=== PATIENT | female | born 1955 | race Caucasian/White ===

== ENCOUNTER → 2016-07-23 | Outpatient (CLI) | payer OTHER ==
[~2016-07-23] MED LIST: AMITRIPTYLINE PO; ATOR10TA82 PO; CALC-393 PO; CALC625T PO; CETI10TA84 PO; CLB200 PO; COEN100C7 PO; CYAN10004 PO; DIPH25CA5 PO; FISHOIL PO; FLX10 PO; FRN PO; GUAI600T49 PO; HYDR-5688 PO; MULT-188 PO; MULT-610 PO; NEUROCET PO; NUTRTAB40 PO; OXYSR10 PO; PARO1TAB27 PO; POLYSOL4 OP; POTA1TAB94 PO; PRLSR20 PO; PYRI100T4 PO; SIME180C6 PO; TRIA1SPR4 NAE; VALECAP PO; VITA10004 PO; VTMD1000 PO; XRL10 PO; ZNTT/150 PO; [UNRECOGNIZED DRUG - REMARK] PO
--- NOTE | 2016-07-23 12:46 | MAMMOGRAPHY REPORT ---
BILATERAL DIGITAL SCREENING MAMMOGRAM TOMOSYNTHESIS WITH CAD: 07/23/2016 CLINICAL HISTORY: Routine screening. Patient has no complaints. TECHNIQUE: Breast tomosynthesis in addition to standard 2D mammography was performed. Current study was also evaluated with a Computer Aided Detection (CAD) system. COMPARISON: Comparison is made to exams dated: 05/09/2015 mammogram, 04/27/2013 mammogram, 04/21/2011 m ammogram, 04/15/2010 mammogram, 04/09/2009 mammogram, and 05/03/2014 mammogram - [facility]. BREAST COMPOSITION: There are scattered areas of fibroglandular density in both breasts. FINDINGS: There are benign rim calcifications and round microcalcifications scattered throughout the breasts. No suspicious mass, architectural distortion or cluster of microcalcifications is seen. IMPRESSION: ACR BI-RADS CATEGORY 1: NEGATIVE There is no mammographic evidence of malignancy. A 1 year screening mammogram is recommended. The p atient will receive written notification of the results. Approximately 10% of breast cancers are not detected with mammography. A negative mammographic repor t should not delay biopsy if a clinically suggestive mass is present. Chiqui Emmanuel M.D. ay/:07/23/2016 09:12:28 Features Editor: Nati ARRIOLA(R)(M), [facility] letter sent: Normal 1/2 BI-RADS Code: ACR BI-RADS Category 1: Negative
== END | disposition home or self-care (01) ==
LOC: C.MAMM 07:50
PROVIDERS: ATTEND Family Medicine
DX: Z12.31 Encounter for screening mammogram for malignant neoplasm of breast (principal)

== ENCOUNTER → 2017-07-27 | Outpatient (CLI) | payer OTHER ==
[~2017-07-27] MED LIST changes: +RANI150T85 PO; -ZNTT/150 PO
--- NOTE | 2017-07-28 07:46 | MAMMOGRAPHY REPORT ---
BILATERAL DIGITAL SCREENING MAMMOGRAM TOMOSYNTHESIS WITH CAD: 07/27/2017 CLINICAL HISTORY: Routine screening. Patient has no complaints. TECHNIQUE: Breast tomosynthesis in addition to standard 2D mammography was performed. Current study was also evaluated with a Computer Aided Detection (CAD) system. COMPARISON: Comparison is made to exams dated: 07/23/2016 mammogram, 05/09/2015 mammogram, 05/03/2014 m ammogram, 04/27/2013 mammogram, 04/21/2012 mammogram, and 04/15/2010 mammogram - [facility]. BREAST COMPOSITION: There are scattered areas of fibroglandular density in both breasts. FINDINGS: There are scattered stable benign-appearing calcifications bilaterally. No suspicious mass , architectural distortion or cluster of microcalcifications is seen. IMPRESSION: ACR BI-RADS CATEGORY 1: NEGATIVE There is no mammographic evidence of malignancy. A 1 year screening mammogram is recommended. The pa tient will receive written notification of the results. Approximately 10% of breast cancers are not detected with mammography. A negative mammographic report should not delay biopsy if a clinically suggestive mass is present. Chiqui Emmanuel M.D. ay/:07/27/2017 10:48:46 Equity Holder: Sharlene ARRIOLA([employer])(Zac), [facility] letter sent: Normal 1/2 BI-RADS Code: ACR BI-RADS Category 1: Negative
== END | disposition home or self-care (01) ==
LOC: C.MAMM 08:43
PROVIDERS: ATTEND Family Medicine
DX: Z12.31 Encounter for screening mammogram for malignant neoplasm of breast (principal)

== ENCOUNTER 2020-02-20 04:55 | Observation (INO) ==
--- NOTE | 2020-01-20 14:54 | PAT Medication Instructions ---
Medication Instructions Date of Service January 20, 2020 Home Medications Igor Mag Zinc Plus D3 1 cap PO QAM Thera Tear 1 drp OPB DAILY PRN aloe vera 1 cap PO QAM amitriptyline 10 mg PO HS aspirin 81 mg PO HS azelastine 1 spray INTRANASAL BID butalbital-acetaminophen 1 cap PO QAM PRN calcium polycarbophil [FiberCon] 1,250 mg PO QAM cholecalciferol (vitamin D3) [Vitamin D3] 25 mcg PO QAM cranberry 400 mg PO BID cyanocobalamin (vitamin B-12) [Vitamin B-12] 1,000 mcg PO QAM cyclobenzaprine 10 mg PO TID PRN dimenhydrinate [Dramamine] 50 mg PO DAILY PRN doxycycline monohydrate 50 mg PO QAM etodolac 500 mg PO BID lorazepam 0.5 mg PO DAILY PRN metronidazole 1 applic TOPICAL DAILY PRN multivitamin 1 cap PO QAM omega-3 fatty acids [Fish Oil] 1,000 mg PO QAM omeprazole 20 mg PO BID potassium gluconate 595 mg PO QAM ropinirole 0.25 mg PO HS rosuvastatin 10 mg PO HS vitamin E 1,000 unit PO QAM ASK your surgeon for instructions etodolac 500 mg PO BID butalbital-acetaminophen 1 cap PO QAM PRN STOP taking 2 weeks before surgery (or as soon as possible if surgery is within 2 weeks) Thera Tear 1 drp OPB DAILY PRN aloe vera 1 cap PO QAM omega-3 fatty acids [Fish Oil] 1,000 mg PO QAM vitamin E 1,000 unit PO QAM cranberry 400 mg PO BID STOP taking 24 hours before surgery ropinirole 0.25 mg PO HS metronidazole 1 applic TOPICAL DAILY PRN DO NOT take the morning of surgery calcium polycarbophil [FiberCon] 1,250 mg PO QAM cholecalciferol (vitamin D3) [Vitamin D3] 25 mcg PO QAM cyanocobalamin (vitamin B-12) [Vitamin B-12] 1,000 mcg PO QAM cyclobenzaprine 10 mg PO TID PRN dimenhydrinate [Dramamine] 50 mg PO DAILY PRN multivitamin 1 cap PO QAM potassium gluconate 595 mg PO QAM Take morning of surgery With a small sip of water, OTHERWISE NOTHING TO EAT OR DRINK AFTER MIDNIGHT: azelastine 1 spray INTRANASAL BID doxycycline monohydrate 50 mg PO QAM lorazepam 0.5 mg PO DAILY PRN (if needed) omeprazole 20 mg PO BID Take evening before surgery amitriptyline 10 mg PO HS aspirin 81 mg PO HS azelastine 1 spray INTRANASAL BID cyclobenzaprine 10 mg PO TID PRN (if needed) dimenhydrinate [Dramamine] 50 mg PO DAILY PRN (if needed) lorazepam 0.5 mg PO DAILY PRN (if needed) omeprazole 20 mg PO BID rosuvastatin 10 mg PO HS Other Notes If you have any questions please call us at [phone] or [phone] or [phone] or [phone]
--- NOTE | 2020-01-25 13:31 | Anesthesiology Consultation ---
Date of Service January 25, 2020 Assessment & Plan (1) Encounter for pre-operative examination: Per assessment on 01/24: Travel screen- Lives in [facility]. Travel to [facility] to visit family. Uses PPE. No known COVID-19 positive contacts or current COVID-19 related symptoms. Surgeon arranging preop COVID testing. Awaiting results. Chart Review Chart Review: Acceptable Risk for Surgery (surgeon-ordered PCP clearance ([facility])) and Patient seen in Pre Admission Testing Teaching & Discussion Pre-Anesthesia Teaching/Discussion Notes: Instructed NPO after midnight before surgery,except medications with 15 cc of water. Medication instructions provided according to the PAT guidelines. History Surgery Operation Date: 02/20/20 07:00 Proposed Procedures p Left Total Knee Arthroplasty - Ramy Lugo DO Height/Weight Height: 5 ft 3 in Weight: 98.2 kg Allergies Allergy/AdvReac Type Severity Reaction Status Date / Time Iodinated Contrast Media Allergy Unknown Hives Verified 01/25/20 13:28 codeine AdvReac Mild Migraine Verified 01/25/20 13:28 Medications Home Medications Medication Instructions Recorded Confirmed Last Taken Igor Mag Zinc Plus D3 1 cap PO QAM 01/16/20 01/16/20 Unknown Thera Tear 1 drp OPB DAILY PRN 01/16/20 Unknown aloe vera 1 cap PO QAM 01/16/20 01/16/20 Unknown amitriptyline 10 mg PO HS 01/16/20 01/16/20 Unknown aspirin 81 mg PO HS 01/16/20 01/16/20 Unknown azelastine 1 spray INTRANASAL BID 01/16/20 01/16/20 Unknown butalbital-acetaminophen 1 cap PO QAM PRN 01/16/20 01/16/20 Unknown calcium polycarbophil [FiberCon] 1,250 mg PO QAM 01/16/20 01/16/20 Unknown cholecalciferol (vitamin D3) 25 mcg PO QAM 01/16/20 01/16/20 Unknown [Vitamin D3] cranberry 400 mg PO BID 01/16/20 01/16/20 Unknown cyanocobalamin (vitamin B-12) 1,000 mcg PO QAM 01/16/20 01/16/20 Unknown [Vitamin B-12] cyclobenzaprine 10 mg PO TID PRN 01/16/20 01/16/20 Unknown dimenhydrinate [Dramamine] 50 mg PO DAILY PRN 01/16/20 01/16/20 Unknown doxycycline monohydrate 50 mg PO QAM 01/16/20 01/16/20 Unknown etodolac 500 mg PO BID 01/16/20 01/16/20 Unknown lorazepam 0.5 mg PO DAILY PRN 01/16/20 01/16/20 Unknown metronidazole 1 applic TOPICAL DAILY PRN 01/16/20 01/16/20 Unknown multivitamin 1 cap PO QAM 01/16/20 01/16/20 Unknown omega-3 fatty acids [Fish Oil] 1,000 mg PO QAM 01/16/20 01/16/20 Unknown omeprazole 20 mg PO BID 01/16/20 01/16/20 Unknown potassium gluconate 595 mg PO QAM 01/16/20 01/16/20 Unknown ropinirole 0.25 mg PO HS PRN 01/16/20 01/16/20 Unknown rosuvastatin 10 mg PO HS 01/16/20 01/16/20 Unknown vitamin E 1,000 unit PO QAM 01/16/20 01/16/20 Unknown Deep Blue Relief 1 tab PO DAILY 01/25/20 01/25/20 Unknown Evening [place] 3 tab PO DAILY 01/25/20 01/25/20 Unknown Hair,Skin and Nails 2 tab PO DAILY 01/25/20 01/25/20 Unknown Neuriva 1 tab PO DAILY 01/25/20 Unknown Tart Clifford Extract 1 tab PO DAILY 01/25/20 01/25/20 Unknown Zyrtec 1 tab PO DAILY 01/25/20 01/25/20 Unknown ginko biloba 120 mg PO DAILY 01/25/20 Unknown vitamin A-vitamin C-vit E-min 1 tab PO DAILY 01/25/20 01/25/20 Unknown [Ocuvite] Past Medical History Medical History (Updated 01/25/20 @ 14:05 by Sole Fortune) Anxiety Depression Diverticular disease GERD (gastroesophageal reflux disease) controlled Hx of basal cell carcinoma Hx of blood clots 10+ years ago (LLE DVT > PE), previously on coumadin Hx of pulmonary embolus 10+ years ago (LLE DVT > PE), previously on coumadin Hyperlipidemia Obesity Osteoarthritis RLS (restless legs syndrome) Exercise / Class Metabolic Activity III < 4 Walking/Shop/Light housework Past Surgical History Surgical History History of bunionectomy of right great toe History of carpal tunnel surgery of left wrist History of total right knee replacement Hx of basal cell carcinoma excision posterior head Hx of colonoscopy Hx of lipoma ankle lipoma excision Hx of thumb surgery left Hx of tonsillectomy Past Anesthesia History No Hx of Anesthesia Complications and No Family Hx of Anesthesia Complications (Limited family hx knowledge (patient adopted)) History of PONV No Hx of PONV and Hx of Motion Sickness Social History Smoking Status: Never smoker Do You Dip or Chew Tobacco: No Hx Alcohol Use: Yes Alcohol type: wine alcohol intake frequency: holidays/special occasions only Hx Substance Use: No Review of Systems Patient denies chest pain, shortness of breath, fever, chills, cough, wheezing, palpitations. Physical Exam Vital Signs VITALS BP 141/86 P 90 TEMP 97.8 SP02 96%RA RESP 16 PHYSICAL Full neck and c-spine range of motion. Full TMJ range of motion. TMD 3 finger breaths Mallampati Score 2 Dentition: missing molars, upper sides missing Lungs: clear throughout to auscultation Cardiac: regular rate and rhythm, no murmurs noted Spine: normal Carotid arteries: negative bruit Extremities: no edema Testing Laboratory Results 01/25/20 14:08 PT 11.0 Seconds (9.0-12.0) 01/25/20 14:08 INR 1.0 (0.9-1.1) 01/25/20 14:08 APTT 26.5 Seconds (21.0-31.0) 01/25/20 14:08 Hemoglobin A1c 5.9 % (4.5-5.6) H 01/25/20 14:08 Urine Color Yellow 01/25/20 14:08 Urine Appearance Clear (Clear) 01/25/20 14:08 Urine pH 5.5 (4.5-7.5) 01/25/20 14:08 Ur Specific [place] 1.019 (1.000-1.030) 01/25/20 14:08 Urine Protein Negative (Negative) 01/25/20 14:08 Urine Glucose (UA) Negative (Negative) 01/25/20 14:08 Urine Ketones Negative (Negative) 01/25/20 14:08 Urine Nitrite Negative (Negative) 01/25/20 14:08 Ur Leukocyte Esterase Negative (Negative) 01/25/20 14:08 Blood Type A Positive 01/25/20 14:08 Antibody Screen NEGATIVE 01/25/20 14:08 01/23/20 WBC 5.36 H/H 12.6/38.5 PLATELETS 244 SODIUM 141 POTASSIUM 4.7 CHLORIDE 103 CO2 27 BUN 25 CREATININE 0.8 GLUCOSE 91 Electrocardiogram Date: 01/25/20 Findings: + NSR @ (80) Chest X-Ray Date: 01/25/20 FINDINGS: The heart is mildly enlarged. There is no failure. There is no focal pulmonary consolidation. There are no pleural effusions. IMPRESSION: Mild cardiomegaly. No acute findings.
--- NOTE | 2020-01-25 14:34 | XRay Report ---
XR chest Pre-admission PA/Lat CLINICAL HISTORY: Preoperative chest COMPARISON STUDY: 07/17/2007 FINDINGS: The heart is mildly enlarged. There is no failure. There is no focal pulmonary consolidatio n. There are no pleural effusions.[ IMPRESSION: Mild cardiomegaly. No acute findings ACT 112: Negative or not required by law. Electronically signed by: Shorty Barreto M.D. 01/25/2020 2:33 PM
--- NOTE | 2020-01-25 14:36 | Electrocardiogram Report ---
Test Reason : Blood Pressure : / mmHG Vent. Rate : 080 BPM Atrial Rate : 080 BPM P-R Int : 190 ms QRS Dur : 090 ms QT Int : 390 ms P-R-T Axes : 066 037 040 degrees QTc Int : 449 ms Normal sinus rhythm Normal ECG When compared with ECG of 06-DEC-2014 09:34, No significant change was found Confirmed by Paco Nesbitt ([id number]) on 01/25/2020 2:36:22 PM Referred By: Ramy Lugo Confirmed By:Paco Nesbitt
[2020-01-25 15:47] LABS: Appearance Urine Clear (Clear); Bilirubin Urine Negative (Negative); Blood Urine Negative (Negative); Color Urine Yellow; Glucose Urine UA Negative (Negative); Ketones Urine Negative (Negative); Leukocyte Esterase Urine Negative (Negative); Nitrite Urine Negative (Negative); Protein Urine Negative (Negative); Specific Gravity Urine 1.019 (1.000-1.030); Urobilinogen Urine Negative (Negative); pH Urine 5.5 (4.5-7.5)
[2020-01-25 15:54] LABS: Partial Thromboplastin Ratio 0.9; Partial Thromboplastin Time 26.5 Seconds (21.0-31.0)
[2020-01-25 19:49] LABS: Basophils # (auto) 0.02 K/uL (0-0.2); Basophils % (auto) 0.4 %; Eosinophils # (auto) 0.11 K/uL (0-0.5); Hematocrit (blood only) 38.7 % (37-47); Hemoglobin 12.6 g/dL (12.0-16.0); Immature Granulocytes # (auto) 0.01 K/uL (0.00-0.02); Immature Granulocytes % (auto) 0.2 %; Lymphocytes # (auto) 1.67 K/uL (1.2-3.4); Lymphocytes % (auto) 30.5 %; Mean Corpuscular Hemoglobin 30.4 pg (25-34); Mean Corpuscular Hgb Conc 32.6 g/dL (32-36); Mean Corpuscular Volume 93.5 fL (80-100); Mean Platelet Volume 9.3 fL (7.4-10.4); Monocytes % (auto) 7.3 %; Neutrophils # (auto) 3.26 K/uL (1.4-6.5); Neutrophils % (auto) 59.6 %; Platelet Count 235 K/uL (130-400); RDW Coefficient of Variation 13.8 % (11.5-14.5); RDW Standard Deviation 47.1 fL (36.4-46.3); Red Blood Count 4.14 M/uL (4.2-5.4); White Blood Count 5.47 K/uL (4.8-10.8)
[2020-01-26 07:35] LABS: Estimated Average Glucose 123 mg/dl; Hemoglobin A1C 5.9 % (4.5-5.6)
--- NOTE | 2020-02-18 10:00 | History & Physical Report ---
Date of Service February 20, 2020 Assessment & Plan (1) Degenerative joint disease of left knee: I have indicated the patient for left total knee replacement. The risks, benefits and complications of surgery were explained to the patient which include but not limited to infection, acute blood loss, DVT/PE, injury to nerves, vessels, bone, soft tissue, arthrofibrosis, chronic pain, failure of the prosthesis, knee dislocation, leg length discrepancy, need for additional surgery, cardiac and pulmonary events and . The patient wished to proceed with surgery and informed consent was obtained at this time. We will plan for Lovenox post-operatively for DVT prophylaxis. Upon discharge the patient will be discharged home with home health services. Appropriate clearances by PCP were obtained. The patient is asymptomatic for UTI. History of Present Illness Chief Complaint: Left knee pain/DJD Primary Care Provider: Ori Alva MD The patient is a 64 year old female who presents with complaints of severe left knee pain and DJD. The patient has failed outpatient conservative treatments to this point which included NSAIDs, IA corticosteroid injection and GUSTAFSON injections, PT and a home exercise/walking program. The patient's pain and limited function have progressed to the point where they severely hinder their activities of daily living and they no longer tolerate exercise programs. They are requesting to proceed with total knee replacement surgery. Allergies Allergy/AdvReac Type Severity Reaction Status Date / Time Iodinated Contrast Media Allergy Unknown Hives Verified 02/20/20 05:24 codeine AdvReac Mild Migraine Verified 02/20/20 05:24 Home Medications Home Medications Medication Instructions Recorded Confirmed Type Igor Mag Zinc Plus D3 1 cap PO QAM 01/16/20 02/20/20 History Thera Tear 1 drp OPB DAILY PRN 01/16/20 History aloe vera 1 cap PO QAM 01/16/20 02/20/20 History amitriptyline 10 mg PO HS 01/16/20 02/20/20 History aspirin 81 mg PO HS 01/16/20 02/20/20 History azelastine 1 spray INTRANASAL BID 01/16/20 02/20/20 History butalbital-acetaminophen 1 cap PO QAM PRN 01/16/20 02/20/20 History calcium polycarbophil [FiberCon] 1,250 mg PO QAM 01/16/20 02/20/20 History cholecalciferol (vitamin D3) 25 mcg PO QAM 01/16/20 02/20/20 History [Vitamin D3] cranberry 400 mg PO BID 01/16/20 02/20/20 History cyanocobalamin (vitamin B-12) 1,000 mcg PO QAM 01/16/20 02/20/20 History [Vitamin B-12] cyclobenzaprine 10 mg PO TID PRN 01/16/20 02/20/20 History dimenhydrinate [Dramamine] 50 mg PO DAILY PRN 01/16/20 02/20/20 History doxycycline monohydrate 50 mg PO QAM 01/16/20 02/20/20 History etodolac 500 mg PO BID 01/16/20 02/20/20 History lorazepam 0.5 mg PO DAILY PRN 01/16/20 02/20/20 History metronidazole 1 applic TOPICAL DAILY PRN 01/16/20 02/20/20 History multivitamin 1 cap PO QAM 01/16/20 02/20/20 History omega-3 fatty acids [Fish Oil] 1,000 mg PO QAM 01/16/20 02/20/20 History omeprazole 20 mg PO BID 01/16/20 02/20/20 History potassium gluconate 595 mg PO QAM 01/16/20 02/20/20 History ropinirole 0.25 mg PO HS PRN 01/16/20 02/20/20 History rosuvastatin 10 mg PO HS 01/16/20 02/20/20 History vitamin E 1,000 unit PO QAM 01/16/20 02/20/20 History Deep Blue Relief 1 tab PO DAILY 01/25/20 02/20/20 History Evening [place] 3 tab PO DAILY 01/25/20 02/20/20 History Hair,Skin and Nails 2 tab PO DAILY 01/25/20 02/20/20 History Neuriva 1 tab PO DAILY 01/25/20 History Tart Clifford Extract 1 tab PO DAILY 01/25/20 02/20/20 History Zyrtec 1 tab PO DAILY 01/25/20 02/20/20 History ginko biloba 120 mg PO DAILY 01/25/20 History vitamin A-vitamin C-vit E-min 1 tab PO DAILY 01/25/20 02/20/20 History [Ocuvite] Past Med/Surg History Medical History Anxiety Depression Diverticular disease GERD (gastroesophageal reflux disease) controlled Hx of basal cell carcinoma Hx of blood clots 10+ years ago (LLE DVT > PE), previously on coumadin Hx of pulmonary embolus 10+ years ago (LLE DVT > PE), previously on coumadin Hyperlipidemia Obesity Osteoarthritis RLS (restless legs syndrome) Surgical History History of bunionectomy of right great toe History of carpal tunnel surgery of left wrist History of total right knee replacement Hx of basal cell carcinoma excision posterior head Hx of colonoscopy Hx of lipoma ankle lipoma excision Hx of thumb surgery left Hx of tonsillectomy Social History Smoking Status: Never smoker Second Hand Exposure: No; Do You Dip or Chew Tobacco: No; Tobacco Cessation Education Requested by Patient: No Hx Alcohol Use: Yes Alcohol type: wine Hx Substance Use: No Preferred Language: Finnish Communication Ability: Effective Coiler Operator Required: No Beliefs That Will Affect Care: None Current Living Situation: Family Other Information That Helps Us Care for You: No Feels Safe at Home: Yes Safety Concerns: Feels Safe At This Time Assistive Devices: None Review of Systems Review of Systems: All systems reviewed & are unremarkable except as noted in HPI & below Constitutional: as per Subjective / HPI Physical Exam Physical Exam: LLE NVSI +EHL/FHL/TA/GS SILT grossly, +2 DP pulse, compartments soft NT, limited painful ROM of the knee, 0-100 degrees of flexion, +creptius Constitutional: WD/WN, vitals as above Eyes: PERRL, conjunctivae normal, anicteric sclerae ENMT: external ear and nose normal, oropharynx normal Neck: trachea midline, no thyromegaly Respiratory: normal respiratory effort, lungs clear to auscultation Cardiovascular: RRR, no murmur, no edema Gastrointestinal (Abdomen): normal bowel sounds, soft, nontender, no hepatosplenomegaly Musculoskeletal: no cyanosis or clubbing, extremities motor strength 5/5 Skin: no rashes, warm and dry Neurologic: patellar DTR's 2+ bilat, sensation intact Psychiatric: A+Ox3, euthymic affect Lymphatic: no cervical or axillary lymphadenopathy Results & Data Results & Data ([facility]) Diagnostic Findings Multiple views of the knee demonstrates severe tricompartmental DJD with complete loss of the medial and lateral joint spaces. +osteophytes, +sclerosis. Pre Admission Testing Addendum Laboratory Results 01/25/20 14:08 PT 11.0 Seconds (9.0-12.0) 01/25/20 14:08 INR 1.0 (0.9-1.1) 01/25/20 14:08 APTT 26.5 Seconds (21.0-31.0) 01/25/20 14:08 Hemoglobin A1c 5.9 % (4.5-5.6) H 01/25/20 14:08 Urine Color Yellow 01/25/20 14:08 Urine Appearance Clear (Clear) 01/25/20 14:08 Urine pH 5.5 (4.5-7.5) 01/25/20 14:08 Ur Specific [place] 1.019 (1.000-1.030) 01/25/20 14:08 Urine Protein Negative (Negative) 01/25/20 14:08 Urine Glucose (UA) Negative (Negative) 01/25/20 14:08 Urine Ketones Negative (Negative) 01/25/20 14:08 Urine Nitrite Negative (Negative) 01/25/20 14:08 Ur Leukocyte Esterase Negative (Negative) 01/25/20 14:08 Blood Type A Positive 01/25/20 14:08 Antibody Screen NEGATIVE 01/25/20 14:08 01/25/20 14:48 Urine Culture - Final Urine,Clean Catch Gram positive cocci
[2020-02-20] MEDS ORDERED: LR 500ML BOLUS, THEN 15ML/HR IV SCH (06:00)
[2020-02-20] MEDS ORDERED: TRANEXAMIC ACID 1,000 MG **IV Pre-op IV SCH (06:00)
[2020-02-20] MEDS ORDERED: METOCLOPRAMIDE HCL 10 MG TABLET PO SCH (06:00)
[2020-02-20] MEDS ORDERED: CeleBREX 200 MG CAP PO SCH (06:00)
[2020-02-20] MEDS ORDERED: TRANEXAMIC ACID 1,000 MG **IV Intra-op IV SCH (06:00)
[2020-02-20] MEDS ORDERED: GABAPENTIN 300 MG CAP PO SCH (06:00)
[2020-02-20] MEDS ORDERED: dexAMETHasone 4 MG TAB PO SCH (06:00)
[2020-02-20] MEDS ORDERED: ROPIVACAINE 0.5% HCL/PF 150 MG, BUPIVACAINE 0.5% MPF 30 ML, EPINEPHrine 30MG/30ML (OR U... INSTIL SCH (06:00)
[2020-02-20] MEDS ORDERED: ceFAZolin 2000MG 2,000 MG/15 ML SYR IV SCH (06:00)
[2020-02-20] MEDS ORDERED: FAMOTIDINE 20 MG TAB PO SCH (06:00)
[2020-02-20] MEDS ORDERED: ACETAMINOPHEN 500 MG TAB PO SCH (06:00)
[2020-02-20] MEDS ORDERED: BACITRACIN INJ 50,000 UNIT VIAL ONE (06:31)
[2020-02-20] MEDS ORDERED: ORTHO JOINT ANESTHETIC ONE (06:31)
[2020-02-20] MEDS ORDERED: BUPIVACAINE 0.5 % 5 MG/1 ML PF 10ML VIAL ONE (06:37)
[2020-02-20] MEDS ORDERED: EPINEPHrine INJ 1 MG/ML AMP ONE (06:37)
[2020-02-20] MEDS ORDERED: ROPIVACAINE 0.5% 5 MG/ML 30 ML VIAL ONE (06:37)
--- NOTE | 2020-02-20 06:37 | History & Physical Bridge Note ---
Date of Service February 20, 2020 History & Physical Bridge Note I have examined the patient, reviewed the History & Physical and in the interval since the performance of the History & Physical I have noted the following changes of clinical significance: no changes noted
[2020-02-20] MEDS ORDERED: PROPOFOL IV EMULSION 10 MG/ML 20 ML VIAL IV ONE ×3 (06:41→08:22)
[2020-02-20] MEDS ORDERED: MIDAZOLAM HCL 1 MG/ML 2ML VIAL ONE (06:41)
[2020-02-20] MEDS ORDERED: LIDOCAINE HCL 2% 2 ML VIAL/AMP(20MG/ML) INFIL ONE (06:41)
[2020-02-20] MEDS ORDERED: fentaNYL citrate 100 MCG/2 ML VIAL ONE (06:41)
[2020-02-20] MEDS ORDERED: ePHEDrine sulfate 50 MG/ML AMP IV PRN (07:15)
[2020-02-20] MEDS ORDERED: PHENYLEPHRINE 100MCG/ML 5ML SYR IV PRN (07:15)
[2020-02-20] MEDS ORDERED: HYDROmorphone INJ 1 MG/ML SYRINGE IV PRN (07:15)
[2020-02-20] MEDS ORDERED: LABETALOL HCL IV 5 MG/ML 20ML IV PRN (07:15)
[2020-02-20] MEDS ORDERED: fentaNYL citrate 100 MCG/2 ML VIAL IV PRN (07:15)
[2020-02-20] MEDS ORDERED: ATROPINE SULFATE 0.1 MG/ML 10ML SYR IV PRN (07:15)
[2020-02-20] MEDS ORDERED: ONDANSETRON INJ 2 MG/ML 2 ML VIAL IV PRN ×2 (07:15→10:15)
--- NOTE | 2020-02-20 08:47 | Post Operative Brief Note ---
Immediate Post Op Note v1 Date of Surgery February 20, 2020 Pre & Post Diagnosis Operation Date: 02/20/20 07:00 Pre-Op Diagnosis: Osteoarthritis, Left Knee Post-Op Diagnosis: Osteoarthritis, Left Knee I identified the patient and participated in the time-out.: Yes Procedure Operation Date: 02/20/20 07:00 Actual Procedures p Left Total Knee Arthroplasty, Cemented(Left) - Ramy Lugo DO Surgeon Ramy Lugo DO Interface Control Officer Martín Banks Estimated Blood Loss 55 Findings Consistent with Post-Op Diagnosis Fluids 1200 Specimens proximal tibia, distal femur bone fragments Anesthesia Type Spinal MAC Complications none Disposition Disposition: Recovery Room Overlapping Procedure I was present for: the critical portions of procedure. I was immediately available: during the entire case. Back up surgeon: was not required during procedure.
--- NOTE | 2020-02-20 08:50 | Operative Report ---
Post Operative Report Pre & Post Diagnosis Operation Date: 02/20/20 07:00 Pre-Op Diagnosis: Osteoarthritis, Left Knee Post-Op Diagnosis: Osteoarthritis, Left Knee I identified the patient and participated in the time-out.: Yes Procedure Operation Date: 02/20/20 07:00 Actual Procedures p Left Total Knee Arthroplasty, Cemented(Left) - Ramy Lugo DO Surgeon Ramy Lugo DO Baby Counselor Martín Banks Estimated Blood Loss 55 Findings Consistent with Post-Op Diagnosis Fluids 1200 cc LR Specimens Proximal tibia and distal femur bone fragments Anesthesia Type Spinal MAC Complications none Disposition Disposition: Recovery Room Indications The patient is a 64-year-old female presents with long history of severe left knee tricompartmental DJD and failed outpatient conservative treatments including NSAIDs, bracing, injections and home walking/exercise program. The patient's symptoms have progressed to the point where it has been difficult to perform normal activities of daily living. I have indicated the patient for a left total knee arthroplasty, the risks and benefits and complications of the procedure include but are not limited to infection bleeding damage to bone, nerves, vessels, surrounding soft tissue, blood clots, loss of function, leg length discrepancy, dislocation, failure of the components, need for additional surgery and . The patient wished to proceed with surgery at this time and informed consent was obtained. Appropriate clearances were obtained. Description of Procedure COMPONENTS USED: Dhaval persona knee system: Femur size 5, Tibia size C, Tibial articulating surface 14 PS, Patella 29 mm Following induction of spinal anesthesia, a tourniquet was applied to the proximal aspect of the thigh and the patient's left leg was prepped and draped in the usual sterile manner. A timeout was performed, patient identified and site vane confirmed. Appropriate pre-operative IV antibiotics were given. The limb was exsanguinated with an Esmarch bandage and tourniquet was inflated to 300 mmHg. A longitudinal midline incision was made over the anterior knee. Subcutaneous tissue was sharply dissected down to fascia. Electrocautery was used for hemostasis. Next a parapatellar arthrotomy was performed. Patella was everted and the knee was flexed. A Cantor retractor was used to expose the synovium above on the anterior aspect of the femur and removed down to bone. Next, the anterior fat pad was removed to aid in visualization. The medial face of the tibia was cleared of soft tissue first with a Bovie and a quan elevator. This tissue was retracted posteriorly using a blunt Hohmann. Next, the extra-medullary tibial cutting guide was placed to the anterior aspect of the tibia. The tibia resection level was set taking 2mm from the defective tibial condyle. Resection depth was once again confirmed with kristy wing. The medial and lateral collateral ligament was protected with two Hohmann retractors. The tibia guide was removed and proximal tibial bone fragment removed utilizing straight osteotome, electrocautery and Shauna. Next, the distal femur intramedullary canal was accessed utilizing the step drill. The intramedullary distal femur cutting guide was placed into the canal and pinned into place. The distal femur was cut on the 5 degree setting. Next the cutting guide was removed and the femur was sized. Care was taken to ensure appropriate boilerhouse mechanic all rotation and 5 degree holes were drilled. A size 5 4-in-1 cutting block was placed on the distal end of the femur and secured into place with two short headed screws. Two bent Hohmann retractors were placed to protect the medial and lateral collateral ligaments. The oscillating saw was used to cut anterior, posterior, anterior chamfer and posterior chamfer. The four and one cutting block was removed and bone fragments excised. Laminar goal umpire was placed laterally and the ACL and PCL were removed followed by the medial meniscus and posterior medial osteophytes. Aquamantys was utilized for any posterior medial bleeders and Orthomix injected into the post erior medial capsule. A laminar goal umpire was then placed in the medial compartment and the lateral meniscus and posterior osteophytes were removed. Aquamantys was utilized for any posterior lateral bleeders and Orthomix injected into the posterior lateral capsule. Next, drop garland and spacer block were placed with the leg in flexion and extension to assess alignment and flexion/extension gaps. Next, the proximal tibia was assessed and two bent Hohmans were placed medial and lateral to aid in visualization. The appropriate tibia size and rotation was selected and a size C tibial plate was pinned into place with appropriate rotation. Preparation of the tibia was completed utilizing the matching tibial drill and broach. I then turned my attention back to the distal femur in a trial femoral component was impacted into place. Appropriate femoral width was assessed and selected. Next the femur PS box cut guide was placed and cut made with the reciprocal saw and the PS box provisional placed. A trial size 12 PS tibia articular tray was placed and varus-valgus balance assessed in 0 degrees of extension and 30, 60 and 90 degrees of flexion. A final tibial articular surface size 14 PS was chosen. Assess was gained to the patella and caliper utilized to measure width. The patella reamer was utilized and remaining bone removed with oscillating saw. A size 29 mm patella button was selected and the patella pegs drilled. Trial patella button was placed and tracking was assessed. The knee was found to be well balanced, well aligned with excellent patella tracking. The trials were removed and final components were obtained and assembled. The knee was irrigated copiously with sterile saline solution mixed with bacitracin. Access to the proximal tibia was once again obtained utilizing to the Hohmans and the proximal tibia and distal femur were dried with lap sponges. The final components were cemented into place and all excess cement was removed. A trial tibial articular surface was placed while cemented hardened. Knee stability was once again assessed and the final component inserted. A Betadine soak was performed. After 3 minutes, the knee was once more irrigated with copious sterile saline solution with bacitracin. The knee was injected with the remaining Orthomix which includes a combination of Ropivicaine 0.5% 150mg, Bupivicaine 0.5%/Epinephrine 1:200,000 30ml, Toradol 30mg, Dexamethasone 4mg, Ketamine 10mg, Clonidine 100mcg and NSS 30ml solution. The capsulotomy was closed with #1 Vicryl followed by subcutaneous closure with 2-0 Vicryl suture and skin was closed with lynne. A sterile dry dressing was applied which included Silverlon, web roll and Moe wrap. Tourniquet was deflated at 86 minutes. The patient tolerated the procedure well and was taken to the PACU in stable condition. Due to the complex nature of the procedure, the entire surgery was performed with the operational assistance of Martín Banks PA-C. The assistant golf professional, under direct supervision, was involved in the actual performance of all aspects of the surgical procedure including patient positioning, hemostasis, tissue retraction, instrument management and wound closure. I attest to the content of the Intraoperative Record and any orders documented therein. Any exceptions are noted below.
--- NOTE | 2020-02-20 09:25 | XRay Report ---
XR knee LT 1 or 2V routine CLINICAL HISTORY: Surgical Post Op COMPARISON: None. DISCUSSION: There are postsurgical changes of a total left knee arthroplasty and patellar resurfacing . The femoral and tibial components appear well seated. There are overlying skin lynne. There is ga s present within the soft tissues consistent with recent surgery. IMPRESSION: Postsurgical changes of a total left knee arthroplasty. ACT 112: Negative or not required by law. Electronically signed by: Shorty Barreto M.D. 02/20/2020 9:23 AM
--- NOTE | 2020-02-20 09:30 | Anesthesiology Progress Note ---
Date of Service February 20, 2020 Anesthesia Post Procedure Vital Signs Vital Signs: Temp Pulse Pulse Resp BP Pulse Ox 02/20/20 09:25 96 H 14 122/79 100 02/20/20 09:15 101 H 14 117/71 100 02/20/20 09:06 36.2 C L 107 H 14 118/66 100 02/20/20 05:15 37.3 C 95 H 18 128/95 97 Transfer of Care Handoff Completed per policy Notes Mental Status: alert / awake / arousable Patient Amnestic to Procedure: Yes Nausea / Vomiting: adequately controlled Pain: adequately controlled Airway Patency, RR, SpO2: stable & adequate BP & HR: stable & adequate Hydration State: stable & adequate Neuraxial Anesthesia: was administered and sensory block is resolving Anesthetic Complications: no major complications apparent and Pt Satisfied with anesthetic care
[2020-02-20] MEDS ORDERED: MAGNESIUM HYDROXIDE SUSP 30 ML UDC PO PRN (10:15)
[2020-02-20] MEDS ORDERED: HYDROmorphone INJ 0.5 MG/0.5 ML SYR IV PRN (10:15)
[2020-02-20] MEDS ORDERED: NON-FORMULARY MEDICATION (Potassium Gluconate 595 mg (99 mg) Tablet) PO SCH (10:15)
[2020-02-20] MEDS ORDERED: NALOXONE HCL 0.4 MG/1 ML VIAL/CARP IV PRN (10:15)
[2020-02-20] MEDS ORDERED: HYDROCODONE/ACETAMOPHEN 5/325MG TAB PO PRN (10:15)
[2020-02-20] MEDS ORDERED: bisacodyL 10 MG SUPP PR PRN (10:15)
[2020-02-20] MEDS ORDERED: diphenhydrAMINE Capsule 25 MG CAP PO PRN (10:15)
[2020-02-20] MEDS ORDERED: rOPINIRole HCL 0.25 MG TABLET PO PRN (10:15)
[2020-02-20] MEDS ORDERED: METOCLOPRAMIDE HCL INJ 5 MG/ML 2 ML VIAL IV PRN (10:15)
[2020-02-20] MEDS ORDERED: LORazepam 0.5 MG TAB PO PRN (10:15)
[2020-02-20] MEDS: SODIUM CHLORIDE 0.9% 1000ML 1,000 ML IV SCH ×2 (12:03→22:02)
[2020-02-20] MEDS: DOCUSATE SODIUM 100 MG CAP PO SCH ×2 (12:05→21:07)
[2020-02-20] MEDS: MULTIVITAMIN TAB PO SCH (12:05)
[2020-02-20] MEDS: PANTOprazole 40 MG TAB PO SCH ×2 (12:05→21:07)
[2020-02-20] MEDS: DOXYCYCLINE HYCLATE 50 MG CAP PO SCH (12:06)
--- NOTE | 2020-02-20 13:07 | Orthopedic Progress Note ---
Date of Service February 20, 2020 Assessment & Plan (1) Degenerative joint disease of left knee: Status post left total knee arthroplasty -Ancef x24 -DVT prophylaxis: SCDs, teds, Lovenox daily -Weight-bear as tolerates left lower extremity -PT/OT -Postoperative x-ray demonstrates a well aligned well fixed prosthesis without fracture or dislocation -A.m. labs -DC planning Admission and Anticipated Discharge Date Admission Date: February 20, 2020 Subjective Post Operative Progress Note Patient seen sitting up in bed, comfortable, denies complaints, pain well cont rolled, no acute issues. Review of Systems Review of Systems: All systems reviewed & are unremarkable except as noted in HPI & below Constitutional: as per Subjective / HPI Physical Exam Physical Exam: LLE NVSI +EHL/FHL/TA/GS SILT grossly, +2 DP pulse, compartments soft NT, dressing cdi. Constitutional: WD/WN, vitals as above Results & Data ([facility]) Vital Signs (Past 12 Hours) Vital Signs Temp Pulse Pulse Resp BP Pulse Ox 02/20/20 12:52 96 H 16 126/82 96 02/20/20 11:50 94 H 16 135/83 100 02/20/20 10:45 90 16 131/84 99 02/20/20 10:25 36.4 C L 93 H 14 123/79 100 02/20/20 10:19 36.4 C L 94 H 16 123/79 100 02/20/20 09:50 36.4 C L 95 H 14 118/86 99 02/20/20 09:35 36.5 C 96 H 14 122/78 100 02/20/20 09:25 96 H 14 122/79 100 02/20/20 09:15 101 H 14 117/71 100 02/20/20 09:06 36.2 C L 107 H 14 118/66 100 02/20/20 05:15 37.3 C 95 H 18 128/95 97
[2020-02-20] MEDS: ceFAZolin 2000MG 2,000 MG/15 ML SYR IV SCH ×2 (14:30→22:22)
[2020-02-20] MEDS ORDERED: SENNA 8.6 MG TAB PO SCH (21:00)
[2020-02-20] MEDS ORDERED: ROSUVASTATIN CALCIUM 10 MG TAB PO SCH (21:00)
[2020-02-20] MEDS ORDERED: AMITRIPTYLINE HCL 10 MG TAB PO SCH (21:00)
[2020-02-20] MEDS ORDERED: ACETAMINOPHEN 500 MG TAB PO PRN (21:19)
[2020-02-21] MEDS: traMADol HCL 50 MG TABLET PO PRN ×3 (04:05→15:29)
[2020-02-21 06:29] LABS: Hemoglobin 10.6 g/dL (12.0-16.0); Mean Corpuscular Hemoglobin 30.6 pg (25-34); Mean Corpuscular Hgb Conc 32.1 g/dL (32-36); Mean Corpuscular Volume 95.4 fL (80-100); Mean Platelet Volume 9.3 fL (7.4-10.4); Platelet Count 202 K/uL (130-400); RDW Coefficient of Variation 13.8 % (11.5-14.5); RDW Standard Deviation 47.8 fL (36.4-46.3); Red Blood Count 3.46 M/uL (4.2-5.4); White Blood Count 8.09 K/uL (4.8-10.8)
--- NOTE | 2020-02-21 07:20 | Orthopedic Progress Note ---
Date of Service February 21, 2020 Assessment & Plan (1) Degenerative joint disease of left knee: Status post left total knee arthroplasty POD#1 -Ancef x24 -DVT prophylaxis: SCDs, teds, Lovenox daily -Weight-bear as tolerates left lower extremity -PT/OT -Postoperative x-ray demonstrates a well aligned well fixed prosthesis without fracture or dislocation -A.m. labs - as above, hgb 10.6 -DC planning - home with HH Admission and Anticipated Discharge Date Admission Date: February 20, 2020 Subjective Post Operative Progress Note Patient seen sitting up in bed, comfortable, denies complaints, pain well controlled, no acute issues. Denies F/C/N/V/SOB/CP. Review of Systems Review of Systems: All systems reviewed & are unremarkable except as noted in HPI & below Constitutional: as per Subjective / HPI Physical Exam Physical Exam: LLE NVSI +EHL/FHL/TA/GS SILT grossly, +2 DP pulse, compartments soft NT, dressing cdi. Constitutional: WD/WN, vitals as above Results & Data ([facility]) Vital Signs (Past 12 Hours) Vital Signs Temp Pulse Resp BP Pulse Ox 02/21/20 03:57 36.8 C 86 16 113/63 98 02/20/20 23:41 36.6 C 92 H 15 100/65 99 02/20/20 20:43 36.5 C 88 16 126/75 96 Laboratory Results 02/21/20 02/21/20 02/21/20 Range/Units 05:52 05:52 05:52 WBC 8.09 (4.8-10.8) K/uL RBC 3.46 L (4.2-5.4) M/uL Hgb 10.6 L (12.0-16.0) g/dL Hct 33.0 L (37-47) % MCV 95.4 (80-100) fL MCH 30.6 (25-34) pg MCHC 32.1 (32-36) g/dL RDW Std Deviation 47.8 H (36.4-46.3) fL RDW Coeff of Juan M 13.8 (11.5-14.5) % Plt Count 202 (130-400) K/uL MPV 9.3 (7.4-10.4) fL Sodium Pending Potassium Pending Chloride Pending Carbon Dioxide Pending Anion Gap Pending BUN Pending Creatinine Pending Est Cr Clr Drug Dosing Pending Est GFR ( Amer) Pending Est GFR (Non-Af Amer) Pending BUN/Creatinine Ratio Pending Glucose Pending Calcium Pending Hepatitis C Ab Screen Pending
[2020-02-21 07:33] LABS: BUN Creatinine Ratio 22.9 (10-20); Calcium 8.7 mg/dl (8.5-10.1); Creatinine Clr Calc Pharmacy 73.9 ml/min; Est GFR (African American) 85.2; Est GFR (Non-African American) 73.5; Potassium 4.4 mmol/L (3.5-5.1)
[2020-02-21] MEDS: DOCUSATE SODIUM 100 MG CAP PO SCH (08:44)
[2020-02-21] MEDS: MULTIVITAMIN TAB PO SCH (08:44)
[2020-02-21] MEDS: PANTOprazole 40 MG TAB PO SCH (08:44)
[2020-02-21] MEDS: DOXYCYCLINE HYCLATE 50 MG CAP PO SCH (08:44)
[2020-02-21] MEDS ORDERED: ENOXAPARIN INJ 40 MG/0.4 ML SYR SQ SCH (09:00)
[2020-02-21] MEDS ORDERED: diazePAM 2 MG TABLET PO PRN (11:44)
--- NOTE | 2020-02-21 20:35 | Discharge Summary ---
Date of Service February 21, 2020 Admission HPI Per Admitting Provider The patient is a 64 year old female who presents with complaints of severe left knee pain and DJD. The patient has failed outpatient conservative treatments to this point which included NSAIDs, IA corticosteroid injection and GUSTAFSON injections, PT and a home exercise/walking program. The patient's pain and limited function have progressed to the point where they severely hinder their activities of daily living and they no longer tolerate exercise programs. They are requesting to proceed with total knee replacement surgery. Principal Diagnosis Left total knee replacement -Left knee DJD Discharge Exam LLE NVSI +EHL/FHL/TA/GS SILT grossly, +2 DP pulse, compartments soft NT, dressing cdi. Constitutional WD/WN, vitals as above Discharge Data Allergies Allergy/AdvReac Type Severity Reaction Status Date / Time Iodinated Contrast Media Allergy Unknown Hives Verified 02/20/20 05:24 codeine AdvReac Mild Migraine Verified 02/20/20 05:24 Consultations 02/20/20 10:15 Consult Case Management - Discharge Planning Routine Procedures Performed Operation Date: 02/20/20 07:00 Actual Procedures p Left Total Knee Arthroplasty, Cemented(Left) - Ramy Lugo DO Ordered Studies 02/20/20 05:00 US - OR guided needle placemen Routine Hospital Course (1) Degenerative joint disease of left knee: The patient is a 64 -year-old female who presents with long standing history of severe left knee DJD and failed outpatient conservative treatments. The patient's symptoms have progressed to the point where it has been difficult to perform even normal activities of daily living. I indicated the patient for a left total knee arthroplasty, the risks, benefits and complications of the procedure include but not limited to infection, bleeding, damage to bone, nerves, vessels, surrounding soft tissue, may develop blood clots, loss of function, leg length discrepancy, dislocation, failure of the components, loosening of the components, the need for additional surgery and . The patient wished to proceed with surgery at this time and informed consent was obtained. Hospital Course: On 02/20/20 the patient was taken to the operating room, adequate anesthesia administered and underwent a left total knee arthroplasty. The patient tolerated the procedure well and was taken to the PACU in stable condition. Post-operatively the patient was started on a DVT ppx medication and given appropriate IV antibiotics. Consults were placed to physical therapy, occupational therapy and case management. On POD#1, the patient did well overnight and their pain was well controlled. Labs were drawn and the Hgb was 10.6. The patient progressed well with PT. Dressings were changed at this time and the incision was clean, dry and intact. The patients hospital stay was relatively uneventful and they were deemed stable by the orthopedic team and consultants to be discharged home with HH on 02/21/20 . Discharge Instructions: Upon discharge the patient may weight bear as tolerates through their operative extremity. They were instructed to keep the incision clean and dry at all times. The patient may shower but should not submerge the incision, avoid bathing, pools and hot tubs. The patient was given a script for pain medication and should take as instructed. The patient was given a script for DVT ppx Lovenox 40mg Daily and should take as directed. The patient was instructed to not drive or travel for long distances until cleared to do so. If the patient develops any symptoms of fevers, chills, nausea, vomiting, increased redness, swelling, pain or drainage from the surgical site, they should notify the office and/or proceed to the nearest emergency room. The patient should follow up in 10-14 days after surgery for their routine post-operative follow-up appointment and should call the office, to confirm the date and time. Status post left total knee arthroplasty POD#1 -Ancef x24 -DVT prophylaxis: SCDs, teds, Lovenox daily -Weight-bear as tolerates left lower extremity -PT/OT -Postoperative x-ray demonstrates a well aligned well fixed prosthesis without fracture or dislocation -A.m. labs - as above, hgb 10.6 -DC planning - home with Total Time Total Time Spent Total Time Spent (In Minutes): 30 Discharge Plan Discharge Items Patient Disposition: Home - Home Health Services Reason For Visit: Osteoarthritis, Left Knee Discharge Diagnosis: Left total knee replacement -Left knee DJD Condition on Discharge: Good Activity: Per Instructions section Lifting: Wait until after follow-up appointment Bathing: Keep incision dry Bathing Comment: No bathing, pools or hot tubs. Sexual Activity: Wait until after follow-up appointment Exercise/Sports: Wait until after follow-up appointment Driving/Machine Use: No driving Weightbearing: Full weightbearing Non-emergency contact: Primary Care Provider and Surgeon Call non-emergency contact if: you have any medication questions, your symptoms worsen, your pain is not controlled, your pain is worsening, your pain is unusual for you, your pain is concerning for you, you have a fever, your temperature is above 101, your wound has increased redness, your wound has increased drainage and your wound pain has increased Follow-up/Referrals: Ori Alva MD [Primary Care Provider] - Diet: Regular Addtl Attending Provider Instructions: ACTIVITY RECOMMENDATIONS: SELF CARE INSTRUCTIONS AFTER TOTAL KNEE REPLACEMENT A. You may need to continue a physical therapy program after discharge from the hospital. There are several options available to you. Your doctor will assist you in selecting the best one for you. 1. An out-patient facility 2 to 3 times a week for therapy or home therapy. 2. Continue working on all exercises taught to you in the hospital. Your goals should be to increase bending of your knee to 90 degrees and beyond and to fully straighten your knee. B. You may progress at your own pace from walking with a walker or crutches to a cane; then to no assistive devices. C. Make walking a part of your daily routine. Be up as much as comfortable with rest periods throughout the day. Rest with leg elevation is very important. Use the ice wrap frequently for the first 3-4 weeks. D. There are no restrictions on activities. You may ride in a car, shop, participate in eeg technologist and all social activities. E. Wear the long elastic stockings (MARLA hose) 20 hours a day for 2 weeks after surgery. They can be removed several times a day for laundering and for a bath. F. You may shower, no tub baths until cleared by your doctor. SPECIAL CARE INSTRUCTIONS: VERY IMPORTANT TO READ AND REVIEW A. There are a few signs you need to watch for after you are home. Call [facility] if you notice any of the followin. Increased severe knee pain. Some pain is expected especially when you exercise. 2. Increased swelling in your leg or knee; pain or swelling of the calf muscle in either lower leg. 3. Any fluid drainage from the incision. 4. Shortness of breath or chest pain. B. Please call [facility] at if you have any concerns or questions about your operation or recovery. The doctor or his nurse will return your call promptly. C. You must take antibiotics before dental work, bladder, bowel or other surgery. Your doctor will provide you with a permanent care to carry describing this precaution. IMPORTANT: * REMEMBER TO TAKE LOVENOX 40MG DAILY FOR 4 WEEKS UNLESS OTHERWISE DIRECTED. THIS IS YOUR BLOOD THINNER. * HIGH RISK PATIENTS MAY BE PRESCRIBED A STRONGER BLOOD THINNER. THIS WILL BE PROVIDED AT DISCHARGE. * CALL IF INCREASED PAIN, REDNESS, DRAINAGE OR FEVER GREATER THAT 101. * WEAR MARLA HOSE 20 HOURS PER DAY FOR 2 WEEKS. * YOU MAY HAVE A LARGE BAND-AID LIKE DRESSING (SILVERON). THIS WILL REMAIN ON YOUR INCISION FOR 7 DAYS, THEN CAN BE REMOVED. IF INCISION IS LEAKING THROUGH DRESSING, CALL THE OFFICE . FOLLOW UP VISIT: If appointment is not already scheduled: Please call [facility] to make a follow-up appointment for 2 weeks after your surgery at . Pending Studies at Discharge: No Stand-Alone Forms: My [facility] [employer], Smoking Cessation Medications and DC Order Prescriptions: New tramadol 50 mg Tablet 50 mg PO Q6H MDD 4 PRN (Reason: pain) Qty: 30 RF: 0 enoxaparin 40 mg/0.4 mL Syringe 40 mg subcut Q24H Qty: 28 RF: 0 sennosides [Senokot] 8.6 mg Tablet 17.2 mg PO HS PRN (Reason: Constipation) Qty: 28 RF: 0 acetaminophen 500 mg Tablet 1,000 mg PO Q8H PRN (Reason: pain/fevers) Qty: 90 RF: 0 diazepam 2 mg Tablet 2 mg PO BID PRN (Reason: muscle spasm) Qty: 6 RF: 0 Narcan 4 mg/actuation spray,non-aerosol 1 sprays INTNAS ONCE Qty: 2 RF: 0 Continued cyclobenzaprine 10 mg Tablet 10 mg PO TID PRN (Reason: Pain) RF: 0 vitamin E 1,000 unit Capsule 1,000 unit PO QAM RF: 0 cyanocobalamin (vitamin B-12) [Vitamin B-12] 1,000 mcg Tablet 1,000 mcg PO QAM RF: 0 doxycycline monohydrate 50 mg Capsule 50 mg PO QAM RF: 0 ropinirole 0.25 mg Tablet 0.25 mg PO HS PRN (Reason: Restless Leg(S)) RF: 0 amitriptyline 10 mg Tablet 10 mg PO HS RF: 0 aloe vera Capsule 1 cap PO QAM RF: 0 metronidazole 0.75 % Cream 1 applic TOPICAL DAILY PRN (Reason: roscea) RF: 0 calcium polycarbophil [FiberCon] 625 mg Tablet 1,250 mg PO QAM RF: 0 cranberry 400 mg Capsule 400 mg PO BID RF: 0 omeprazole 20 mg Capsule,Delayed Release(Dr/Ec) 20 mg PO BID RF: 0 multivitamin Capsule 1 cap PO QAM RF: 0 omega-3 fatty acids Capsule 1,000 mg PO QAM RF: 0 rosuvastatin 10 mg Tablet 10 mg PO HS RF: 0 cholecalciferol (vitamin D3) [Vitamin D3] 25 mcg (1,000 unit) Tablet 25 mcg PO QAM RF: 0 potassium gluconate 595 mg (99 mg) Tablet 595 mg PO QAM RF: 0 azelastine 0.15 % (205.5 mcg) [place],Non-Aerosol 1 spray INTRANASAL BID RF: 0 Dramamine 25 mg Tablet,Chewable 50 mg PO DAILY PRN (Reason: dizzy) RF: 0 Igor Mag Zinc Plus D3 1 cap PO QAM RF: 0 Thera Tear 1 drp OPB DAILY PRN (Reason: Dry Eye(S)) RF: 0 Evening [place] 3 tab PO DAILY RF: 0 ginko biloba 120 mg PO DAILY RF: 0 vitamin A-vitamin C-vit E-min Tablet 1 tab PO DAILY RF: 0 Deep Blue Relief 1 tab PO DAILY RF: 0 Hair,Skin and Nails 2 tab PO DAILY RF: 0 Neuriva 1 tab PO DAILY RF: 0 Tart Clifford Extract 1 tab PO DAILY RF: 0 Zyrtec 1 tab PO DAILY RF: 0 Discontinued butalbital-acetaminophen 50-325 mg Capsule 1 cap PO QAM PRN (Reason: Headache) RF: 0 aspirin 81 mg Tablet,Delayed Release (Dr/Ec) 81 mg PO HS RF: 0 lorazepam 0.5 mg Tablet 0.5 mg PO DAILY PRN (Reason: Anxiety) RF: 0 etodolac 500 mg Tablet 500 mg PO BID RF: 0 Discharge Orders: Discharge Order (Routine); Ordered 02/21/20 Ordered By: Martín Wilde/Other Patient Handouts: DVT Post Op Prevention, Understanding Knee Replacement, Knee Replacement Total Dc Admission Data Admit Date/Time: 02/20/20 09:13 Attending Provider: Ramy Lugo Admit Provider: Ramy Lugo Primary Care Provider: Ori Alva Other Providers: [facility],Home Health Other Interventions: Discharge Summary Assessment (RN) Last Done: 02/21/20 16:37
== END 2020-02-21 17:25 | disposition home health service (06) ==
LOC: 3E 04:55 → ASU 04:55
DX: G25.81 Restless legs syndrome; Z79.82 Long term (current) use of aspirin; Z88.5 Allergy status to narcotic agent; Z91.041 Radiographic dye allergy status; E66.9 Obesity, unspecified; M17.12 Unilateral primary osteoarthritis, left knee; Z68.37 Body mass index [BMI] 37.0-37.9, adult; Z79.899 Other long term (current) drug therapy; E78.5 Hyperlipidemia, unspecified